=== PATIENT | male | born 1985 | race Hispanic/Latino ===

== ENCOUNTER 2020-04-04 22:11 | Emergency (ER) | payer SELFPAY ==
[~2020-04-04] VITALS: Ht 172.7 cm; Wt 112.0 kg
[2020-04-04] MEDS ORDERED: CLINDAMYCIN PHOS 600 MG/ 4 ML VIAL IM ONE (23:00)
[2020-04-04] MEDS ORDERED: PREDNISONE 20 MG TAB PO ONE (23:00)
[2020-04-04] MEDS ORDERED: CLINDAMYCIN PHOS 600 MG/ 4 ML VIAL ONE (23:25)
[2020-04-04] MEDS ORDERED: PREDNISONE 20 MG TAB ONE (23:25)
[2020-04-05] MEDS ORDERED: POLYTRIM EYE DR10 ML OD (00:28)
[2020-04-05] MEDS ORDERED: BACTRIM DS TAB1 EACH PO (00:28)
[2020-04-05] MEDS ORDERED: PREDNISONE20 MG PO (00:28)
[2020-04-05 00:46] VITALS: BP 156/89
== END 2020-04-05 00:46 | disposition home or self-care (01) ==
LOC: FSED 22:40
DX: H04.011 Acute dacryoadenitis, right lacrimal gland (principal)
CPT/HCPCS: 70450; 70480; 96372; 99283; J7512